=== PATIENT | male | born 1970 | race African-American/Black ===

== ENCOUNTER 2017-02-04 19:26 | Emergency (ER) | payer MEDICAID ==
[~2017-02-04] VITALS: Ht 185.4 cm; Wt 115.0 kg
[~2017-02-04 19:26] MED LIST: FLUT16SP15 NS; GABA-290 PO; IBUP-1509 PO; LORA10TA7 PO; METF10002 PO; OMEP20CA10 PO; SERT25TA74 PO
[2017-02-04 20:18] VITALS: BP 135/82
== END 2017-02-04 22:41 | disposition left against medical advice (07) ==
LOC: ER 19:26
DX: E11.65 Type 2 diabetes mellitus with hyperglycemia (principal); Z53.21 Procedure and treatment not carried out due to patient leaving prior to being seen by health care provider
CPT/HCPCS: 82962

== ENCOUNTER 2017-02-10 19:30 | Emergency (ER) | payer MEDICAID ==
[~2017-02-10] VITALS: Ht 172.7 cm; Wt 100.0 kg
[2017-02-10] MEDS ORDERED: SODIUM CHLORIDE 0.9% 1,000 ML IV ONE (21:17)
[2017-02-10 21:54] LABS: BASOPHILS % 0.8 % (0.0-2.0); EOSINOPHILS % 1.3 % (0.0-5.0); HEMATOCRIT. 40.6 % (42.0-52.0); HEMOGLOBIN. 13.7 g/dL (14.0-18.0); LYMPHOCYTES % 14.7 % (20.0-50.0); MEAN CORPUSCULAR HEMOGLOBIN 30.7 pg (28.0-32.0); MEAN CORPUSCULAR VOLUME 91.4 fL (80.0-94.0); MEAN PLATELET VOLUME 10.9 fl (7.4-10.4); MONOCYTES % 4.5 % (2.0-8.0); NEUTROPHILS % 78.7 % (40.0-76.0); PLATELET 166 x1000/uL (130-400); RED BLOOD CELL COUNT 4.45 mill/uL (4.7-6.1); RED CELL DISTRIBUTION WIDTH 13.5 % (11.6-14.6)
[2017-02-10 21:57] LABS: CHLORIDE 106 mEq/L (98-107)
[2017-02-10 22:02] LABS: CARBON DIOXIDE 30 mEq/L (21-32)
[2017-02-10 22:05] LABS: BETA HYDROXYBUTYRATE 0.1 mMol/L (0.0-0.3)
[2017-02-10 23:03] LABS: CLARITY URINE CLEAR (CLEAR); COLOR URINE YELLOW (YELLOW); GLUCOSE URINE TRACE (NEGATIVE); KETONES URINE NEGATIVE (NEGATIVE); LEUKOCYTE ESTERASE URINE NEGATIVE (NEGATIVE); NITRITE URINE NEGATIVE (NEGATIVE); OCCULT BLOOD URINE NEGATIVE (NEGATIVE); PH URINE 6.5 (4.5-8.0); PROTEIN URINE TRACE (NEGATIVE); SPECIFIC GRAVITY URINE 1.027 (1.005-1.030)
[2017-02-11 01:49] VITALS: BP 143/92
== END 2017-02-11 01:51 | disposition home or self-care (01) ==
LOC: ER 19:40
DX: E11.649 Type 2 diabetes mellitus with hypoglycemia without coma (principal); T38.3X5A Adverse effect of insulin and oral hypoglycemic [antidiabetic] drugs, initial encounter; I10 Essential (primary) hypertension; E78.5 Hyperlipidemia, unspecified; E78.00 Pure hypercholesterolemia, unspecified; F17.200 Nicotine dependence, unspecified, uncomplicated; Z90.5 Acquired absence of kidney; Y92.410 Unspecified street and highway as the place of occurrence of the external cause
CPT/HCPCS: 36415; 80053; 81001; 82010; 82962; 85025; 96360; 96361; 99285; J7030; Z7610

== ENCOUNTER 2017-02-20 16:07 | Emergency (ER) | payer MEDICAID ==
[~2017-02-20] VITALS: Ht 177.8 cm; Wt 90.0 kg
[2017-02-20 16:53] LABS: HEMATOCRIT. 42.2 % (42.0-52.0); HEMOGLOBIN. 14.4 g/dL (14.0-18.0); MEAN CORPUSCULAR HEMOGLOBIN 31.4 pg (28.0-32.0); MEAN CORPUSCULAR VOLUME 92.1 fL (80.0-94.0); MEAN PLATELET VOLUME 10.7 fl (7.4-10.4); PLATELET 184 x1000/uL (130-400); RED BLOOD CELL COUNT 4.59 mill/uL (4.7-6.1); RED CELL DISTRIBUTION WIDTH 13.5 % (11.6-14.6)
[2017-02-20 17:07] LABS: CARBON DIOXIDE 31 mEq/L (21-32); CHLORIDE 101 mEq/L (98-107)
[2017-02-20 17:10] VITALS: BP 130/78
[2017-02-20 17:35] LABS: PLATELET ESTIMATE NORMAL
== END 2017-02-20 20:20 | disposition home or self-care (01) ==
LOC: ER 16:32
DX: E11.649 Type 2 diabetes mellitus with hypoglycemia without coma (principal); E78.00 Pure hypercholesterolemia, unspecified; I10 Essential (primary) hypertension
CPT/HCPCS: 36415; 80053; 85025; 99284; Z7610

== ENCOUNTER 2017-08-06 15:15 | Emergency (ER) | payer MEDICAID ==
[~2017-08-06] VITALS: Ht 182.9 cm; Wt 93.0 kg
[~2017-08-06 15:15] MED LIST changes: -IBUP-1509 PO; +IBUP-2028 PO
[2017-08-06] MEDS ORDERED: DEXTROSE 50% WATER 50ML SYRINGE IV ONE (15:30)
[2017-08-06 15:55] LABS: BASOPHILS % 0.5 % (0.0-2.0); EOSINOPHILS % 0.7 % (0.0-5.0); HEMATOCRIT. 47.7 % (42.0-52.0); HEMOGLOBIN. 15.9 g/dL (14.0-18.0); LYMPHOCYTES % 16.1 % (20.0-50.0); MEAN CORPUSCULAR HEMOGLOBIN 30.5 pg (28.0-32.0); MEAN CORPUSCULAR VOLUME 91.8 fL (80.0-94.0); MEAN PLATELET VOLUME 10.9 fl (7.4-10.4); MONOCYTES % 5.5 % (2.0-8.0); NEUTROPHILS % 77.2 % (40.0-76.0); PLATELET 160 x1000/uL (130-400); RED CELL DISTRIBUTION WIDTH 13.3 % (11.6-14.6)
[2017-08-06 15:58] LABS: CHLORIDE 107 mEq/L (98-107)
[2017-08-06 16:07] LABS: CARBON DIOXIDE 31 mEq/L (21-32); ETHANOL BLOOD < 10 mg/dL
[2017-08-06 16:55] LABS: CLARITY URINE CLEAR (CLEAR); COLOR URINE YELLOW (YELLOW); KETONES URINE TRACE (NEGATIVE); LEUKOCYTE ESTERASE URINE NEGATIVE (NEGATIVE); NITRITE URINE NEGATIVE (NEGATIVE); OCCULT BLOOD URINE NEGATIVE (NEGATIVE); PH URINE 5.5 (4.5-8.0); PROTEIN URINE 2+ (NEGATIVE); SPECIFIC GRAVITY URINE 1.027 (1.005-1.030)
[2017-08-06 17:12] LABS: *AMPHETAMINES SCREEN URINE NEGATIVE (NEGATIVE); *BARBITURATES SCREEN URINE NEGATIVE (NEGATIVE); *BENZODIAZEPINES SCREEN URINE NEGATIVE (NEGATIVE); *COCAINE SCREEN URINE NEGATIVE (NEGATIVE); CANNABINOID URINE SCREEN NEGATIVE (NEGATIVE); METHADONE URINE SCREEN NEGATIVE (NEGATIVE); OPIATES URINE SCREEN NEGATIVE (NEGATIVE); PHENCYCLIDINE URINE SCREEN NEGATIVE (NEGATIVE)
[2017-08-06 20:10] VITALS: BP 158/88
== END 2017-08-06 20:45 | disposition home or self-care (01) ==
LOC: ER 15:15
DX: E11.649 Type 2 diabetes mellitus with hypoglycemia without coma (principal); E78.00 Pure hypercholesterolemia, unspecified; I10 Essential (primary) hypertension; Z79.4 Long term (current) use of insulin; Z91.19 Patient's noncompliance with other medical treatment and regimen; Z93.0 Tracheostomy status
CPT/HCPCS: 36415; 80053; 80305; 81001; 82962; 85025; 93005; 96374; 99285; G0482; Z7610

== ENCOUNTER 2018-05-20 16:25 | Emergency (ER) | payer MEDICAID ==
[~2018-05-20] VITALS: Ht 185.4 cm; Wt 109.0 kg
[~2018-05-20 16:25] MED LIST changes: -METF10002 PO; +METF10004 PO
[2018-05-20 16:31] VITALS: BP 103/67
[2018-05-20] MEDS ORDERED: ACETAMINOPHEN 325MG TABLET PO ONE (17:00)
== END 2018-05-20 18:18 | disposition home or self-care (01) ==
LOC: ER 16:25
DX: S93.492A Sprain of other ligament of left ankle, initial encounter (principal); E11.9 Type 2 diabetes mellitus without complications; E78.00 Pure hypercholesterolemia, unspecified; I10 Essential (primary) hypertension; W01.0XXA Fall on same level from slipping, tripping and stumbling without subsequent striking against object, initial encounter; Y93.89 Activity, other specified; Y92.89 Other specified places as the place of occurrence of the external cause; Y99.8 Other external cause status; Z79.899 Other long term (current) drug therapy; Z98.890 Other specified postprocedural states; Z93.0 Tracheostomy status
CPT/HCPCS: 73600; 99284; Z7610

== ENCOUNTER 2022-02-16 14:51 | Emergency (ER) | payer MEDICAID ==
[~2022-02-16] VITALS: Ht 185.4 cm; Wt 113.0 kg
[~2022-02-16 14:51] MED LIST changes: +METF-416 PO; -METF10004 PO; -OMEP20CA10 PO; +OMEP20CA14 PO
[2022-02-16 16:37] LABS: CHLORIDE 106 mEq/L (98-107)
[2022-02-16 19:25] VITALS: BP 142/78
== END 2022-02-16 19:30 | disposition home or self-care (01) ==
LOC: ER 16:10
DX: E11.649 Type 2 diabetes mellitus with hypoglycemia without coma (principal); E11.22 Type 2 diabetes mellitus with diabetic chronic kidney disease; I12.9 Hypertensive chronic kidney disease with stage 1 through stage 4 chronic kidney disease, or unspecified chronic kidney disease; N18.9 Chronic kidney disease, unspecified; E78.00 Pure hypercholesterolemia, unspecified; Z79.4 Long term (current) use of insulin; Z93.0 Tracheostomy status
CPT/HCPCS: 36415; 80048; 82962; 99283